=== PATIENT | female | born 1980 | race Caucasian/White ===

== ENCOUNTER 2025-04-12 22:37 | Emergency (ER) | payer MEDICAID, OTHER ==
[~2025-04-12] VITALS: Ht 160 cm; Wt 87.4 kg
--- NOTE | 2025-04-12 23:09 | ED.PDOC ---
GI ASSESSMENT HPI Comments 45-year-old female who came to ER for abdominal pain. Patient states for the past few hours, she has been experiencing left-sided abdominal pain with an episode of bright red blood with her stools. Denies any nausea or vomiting. Denies any history of GI bleed. Chief Complaint: Abdominal Pain Time Seen by MD: 23:08 Reviewed Notes: Nurses Notes Allergies: Coded Allergies: NO KNOWN ALLERGIES (Unverified , 04/12/25) Information Source: Patient Mode of Arrival: Ambulatory Timing: Hours Duration: Intermittent Prehospital treatment: None Quality: Aching Vomitus: None Stool: Blood Streaked Severity: Moderate Recent: None Recent Hx of: None Pain Location: LUQ Modifying Factors: Nothing Associated sign and symptoms: Hematochezia, Abdominal Pain Past Medical History PAST MEDICAL HISTORY: HTN Surgical History: [employer] History: Denies all [employer] Hx Family History Family History: Reviewed,noncontributory to illness Social History Smoker: Non-Smoker Alcohol: Denies ETOH Use Drugs: Denies Drug Use Lives In: Home Constitutional: denies: chills, diaphoresis, fatigue, fever, malaise, sweats, weakness, others EENTM: denies: blurred vision, double vision, ear bleeding, ear discharge, ear drainage, ear pain, ear ringing, eye pain, eye redness, hearing loss, mouth pain, mouth swelling, nasal discharge, nose bleeding, nose congestion, nose pain, photophobia, tearing, throat pain, throat swelling, voice changes, others Respiratory: denies: cough, hemoptysis, orthopnea, SOB at rest, shortness of breath, SOB with excertion, stridor, wheezing, others Cardiovascular: denies: chest pain, dizzy spells, diaphoresis, Dyspnea on exertion, edema, irregular heart beat, left arm pain, lightheadedness, palpitations, PND, syncope, others Gastrointestinal: reports: abdominal pain, blood streaked bowels, rectal bleeding; denies: abdomen distended, constipated, diarrhea, dysphagia, difficulty swallowing, hematemesis, melena, nausea, poor appetite, poor fluid intake, rectal pain, vomiting, others Genitourinary: denies: abnormal vagina bleeding, burning, dyspareunia, dysuria, flank pain, frequency, hematuria, incontinence, pain, , vagina discharge, urgency, others Neurological: denies: dizziness, fainting, headache, left sided numbness, left sided weakness, numbness, paresthesia, pre-existing deficit, right sided numbness, right sided weakness, seizure, speech problems, tingling, tremors, weakness, others Musculoskeletal: denies: back pain, gout, joint pain, joint swelling, muscle pain, muscle stiffness, neck pain, others Integumetry: denies: bruises, change in color, change in hair/nails, dryness, laceration, lesions, lumps, rash, wounds, others Allergic/Immunocompromised: denies: Difficulty Healing, Frequent Infections, Hives, Itching, others Hematologic/Lymphatic: denies: anemia, blood clots, easy bleeding, easy bruising, swollen glands, others Endocrine: denies: excessive hunger, excessive sweating, excessive thirst, excessive urination, flushing, intolerance to cold, intolerance to heat, unexplained weight gain, unexplained weight loss, others Psychiatric: denies: anxiety, bipolar disorder, depression, hopeless, panic disorder, schizophrenia, sleepless, suicidal, others Physical Exam General Appearance: No Apparent Distress, Normal HEENT: Normal ENT Inspection, Pharynx Normal, TMs Normal Neck: Full Range of Motion, Non-Tender, Normal, Normal Inspection Respiratory: Chest Non-Tender, Lungs Clear, No Accessory Muscle Use, No Respiratory Distress, Normal Breath Sounds Cardiovascular: No Edema, No JVD, No Murmur, No Gallop, Normal Peripheral Pulses, Regular Rate/Rhythm Breast Exam: Deferred Gastrointestinal: LUQ, No Organomegaly, No Pulsatile Mass, Normal Bowel Sounds, Soft, Tenderness Genitalia: Deferred Pelvic: Deferred Rectal: Deferred Extremities: No calf tenderness, Normal capillary refill, Normal inspection, Normal range of motion, Non-tender, No pedal edema Musculoskeletal : Apperance: Normal Neurologic: Alert, tool filer hand II-XII nml as Tested, No Motor Deficits, Normal Affect, Normal Mood, No Sensory Deficits Cerebellar Function: Normal Reflexes: Normal Skin: Dry, Normal Color, Warm Lymphatic: No Adenopathy Was a procedure done? Was a procedure done?: No GI differential Dx Differential Diagnosis: Appendicitis, Bowel Obstruction, Constipation, Diverticular disease, Gastritis/PUD, Gastroenteritis, GI hemorrhage, UTI, Urolithiasis, , Impaction, Anemia X-Ray, Labs, Meds, VS Vital Signs Date Time Temp Pulse Resp B/P (MAP) Pulse Ox O2 Delivery O2 Flow Rate FiO2 04/12/25 22:39 98.8 117 18 142/93 97 98.8 Lab Test 04/12/25 23:40 Range/Units White Blood Count 13.2 H 4.4-10.8 10^3/uL Red Blood Count 4.42 4.0-5.20 10^6/uL Hemoglobin 12.9 12.2-16.2 g/dL Hematocrit 38.2 36.0-46.0 % Mean Corpuscular Volume 86.5 80.0-100.0 fL Mean Corpuscular Hemoglobin 29.2 28.0-32.0 pg Mean Corpuscular Hemoglobin Concent 33.8 32.0-36.0 g/dL Red Cell Distribution Width 13.6 11.8-14.3 % Platelet Count 377 140-450 10^3/uL Mean Platelet Volume 7.0 6.9-10.8 fL Neutrophils (%) (Auto) 85.2 H 37.0-80.0 % Lymphocytes (%) (Auto) 9.9 L 10.0-50.0 % Monocytes (%) (Auto) 4.6 0.0-12.0 % Eosinophils (%) (Auto) 0.1 0.0-7.0 % Basophils (%) (Auto) 0.2 0.0-2.0 % Neutrophils # (Auto) 11.3 H 1.6-8.6 10 ^3/uL Lymphocytes # (Auto) 1.3 0.4-5.4 10 ^3/uL Monocytes # (Auto) 0.6 0-1.3 10 ^3/uL Eosinophils # (Auto) 0 0-0.8 10 ^3/uL Basophils # (Auto) 0 0-0.2 10 ^3/uL Nucleated Red Blood Cells 0.0 % Sodium Level 141 136-145 mmol/L Potassium Level 3.6 3.5-5.1 mmol/L Chloride Level 102 98-107 mmol/L Carbon Dioxide Level 27 20-31 mmol/L Anion Gap 12 5-15 Blood Urea Nitrogen 7 L 9-23 mg/dL Creatinine 1.03 H 0.550-1.02 mg/dL Glomerular Filtration Rate Calc 69 >90 mL/min BUN/Creatinine Ratio 6.8 L 10.0-20.0 Serum Glucose 132 H 74-106 mg/dL Calcium Level 9.6 8.7-10.4 mg/dL Time of 1ST Reevaluation: 23:04 Reevaluation 1ST: Unchanged Patient Education/Counseling: Diagnosis, Treatment, Prognosis, Need For Follow Up Family Education/Counseling: No Family Present Comments Patient has diverticulitis. However there is no perforation no abscess. And patient is minimally symptomatic. She would like to try outpatient antibiotic therapy 1st. SEPSIS Sepsis Screen Date sepsis recognized/suspect: Apr 12, 2025 Time Sepsis recognized/suspect: 2242 Recent Procedure: No On Antibiotic Therapy: No Respiratory Rate >20: No Heart Rate >90: No Temp<36 C (96.8 F) or >38.3 C: No SBP <90 or MAP <65 mmHG: No New Acute Mental Status Change: No Is the patient on CPAP, BIPAP,: No Physician Orders Ct Ab Pel Wo Con-No Oral Or Iv (04/12/25 23:32) Test, Urine (04/12/25 23:32) Levofloxacin Tablet (Levaquin Tablet) (04/13/25 02:00) Metronidazole Tablet (Flagyl Tablet) (04/13/25 02:00) Vital Signs Date Time Temp Pulse Resp B/P (MAP) Pulse Ox O2 Delivery O2 Flow Rate FiO2 04/12/25 22:39 98.8 117 18 142/93 97 98.8 Laboratory Tests Test 04/12/25 23:40 White Blood Count 13.2 10^3/uL (4.4-10.8) H Departure 1 Departure Time of Disposition: 01:55 Impression: Primary Impression: Diverticulitis of intestine Qualified Codes: K57.32 - Diverticulitis of large intestine without perforation or abscess without bleeding Disposition: 01 HOME / SELF CARE / HOMELESS Condition: Good e-Prescriptions Metronidazole (Flagyl) 500 Mg Tab 1 TAB PO TID, #30 TAB Prov: JOHN MCKEON MD 04/13/25 Levofloxacin Hemihydrate (LEVAQUIN 500 MG) 500 Mg Tab 500 MG PO DAILY for 10 Days, #10 TAB Prov: JOHN MCKEON MD 04/13/25 Discharged With: Self Critical Care Note Critical Care Time?: No Stability Stability form required: No Heart Score Heart Score: Heart Score Response (Comments) Value History N/A 0 EKG N/A 0 Age N/A 0 Risk Factors N/A 0 Troponin N/A 0 Total 0 I personally scribed for JOHN MCKEON MD ([facility]) on 04/12/25 at 23:09. Electronically submitted by Ankur Appiah ([facility]). JOHN MCKEON MD Apr 12, 2025 23:09
[2025-04-12 23:57] LABS: Hematocrit 38.2 % (36.0-46.0); Hemoglobin 12.9 g/dL (12.2-16.2); Mean Corpuscular Hemoglobin 29.2 pg (28.0-32.0); Mean Corpuscular Volume 86.5 fL (80.0-100.0); Nucleated Red Blood Cells % 0.0 %
[2025-04-13 00:03] LABS: Chloride 102 mmol/L (98-107); Potassium 3.6 mmol/L (3.5-5.1); Sodium 141 mmol/L (136-145)
[2025-04-13 00:04] LABS: Anion Gap 12 (5-15); Calcium 9.6 mg/dL (8.7-10.4); Carbon Dioxide 27 mmol/L (20-31)
[2025-04-13 00:09] LABS: BUN/Creatinine Ratio 6.8 (10.0-20.0)
[2025-04-13 00:15] LABS: Blood Urea Nitrogen 7 mg/dL (9-23); Glucose 132 mg/dL (74-106)
--- NOTE | 2025-04-13 01:15 | DVH ---
Exam: CT CT AB PEL WO CON-NO ORAL OR IV History: gib Comparison Study: None Technique: Multidetector spiral CT of the abdomen was performed from lung bases to pubic symphysis. I maging was performed without IV contrast. Axial, coronal and sagittal multiplanar reformats were obta ined from the axial data set by the technologist. Radiation Dose : 1. Abdomen/Pelvis: CTDIvol 13.86 mGy, DLP 13.86 mGy*cm. Findings: Evaluation of solid organs is limited due to lack of intravenous contrast use. Lung Bases: Unremarkable. Liver: Diffuse hypoattenuation. Length measures 21 cm. Gallbladder and Biliary Tree: Low-density stone with otherwise mildly hyperdense intraluminal content s in the gallbladder. No evidence of wall thickening or ductal dilation. Pancreas: Mild atrophy. Spleen: Unremarkable Adrenal Glands: Unremarkable Kidneys/Ureters: No urinary stone or obstruction. Bladder: Grossly unremarkable for degree of distention. Pelvic Organs: Unremarkable Bowel: The distal esophagus, stomach, duodenum and small bowel are unremarkable. The appendix is nor mal. Colonic diverticulosis with inflammatory stranding centered around a posterior oriented diverti culum of the distal descending colon. No obstruction. Vasculature: Unremarkable. Lymphadenopathy: No obvious adenopathy. Peritoneum: No ascites, free air, or fluid collection. Abdominal Wall: Small fat containing umbilical hernia. Musculoskeletal: No acute findings. IMPRESSION: 1. Acute uncomplicated diverticulitis of the descending colon. 2. Cholelithiasis without CT findings of cholecystitis. 3. Hepatic steatosis. Radiation optimization: All CT scans at this facility use at least one of these dose optimization benito hniques: automated exposure control mA and/or kV adjustment per patient size (includes targeted exam s where dose is matched to clinical indication) or iterative reconstruction.
[2025-04-13] MEDS ORDERED: METR-344 PO (01:56)
[2025-04-13] MEDS ORDERED: LEVO500T91 PO (01:56)
[2025-04-13] MEDS: metroNIDAZOLE 500 MG TAB PO ONE (02:55)
[2025-04-13] MEDS: levoFLOXacin 500 MG TAB PO ONE (02:55)
[2025-04-13 03:01] VITALS: BP 126/82; PULSE 101; RESP 16; TEMP 98.3; O2SAT 98
== END 2025-04-13 03:18 | disposition home or self-care (01) ==
LOC: ER 22:37
DX: K57.32 Diverticulitis of large intestine without perforation or abscess without bleeding (principal); I10 Essential (primary) hypertension; Z98.890 Other specified postprocedural states
CPT/HCPCS: 36415; 74176; 80048; 81025; 85025